=== PATIENT | male | born 1965 | race Caucasian/White ===

== ENCOUNTER 2021-09-15 11:21 | Emergency (ER) | payer OTHER ==
--- NOTE | 2021-09-15 11:40 | EDM.PDOC ---
ED HPI GENERAL MEDICAL PROBLEM - General Stated Complaint: CHEST PAIN Time Seen by Provider: 09/15/21 11:28 Source of Information: Reports: Patient, RN Notes Reviewed - History of Present Illness INITIAL COMMENTS - FREE TEXT/NARRATIVE: 56 yo gentleman who was brought form [facility] for evaluation of chest discomfort/Pressure. Patient reports that pain started this morning and got progressively worse. Rates pain as 5/10. Pain apparently resolved prior to presentation. No SOB. No fever, chills. Onset: Today, Sudden Duration: Hour(s): (started 3 hours ago) Quality: Reports: Pressure Midsternal chest Pain Score (Numeric/FACES): 1 - Related Data Allergies Allergy/AdvReac Type Severity Reaction Status Date / Time No Known Allergies Allergy Verified 09/15/21 12:09 Home Meds: Home Meds . [Unable to Verify Home Med List] 09/15/21 [History] ED ROS GENERAL - Review of Systems Review Of Systems: Comprehensive ROS is negative, except as noted in HPI. Constitutional: Reports: No Symptoms HEENT: Reports: No Symptoms Respiratory: Reports: No Symptoms Cardiovascular: Reports: No Symptoms Endocrine: Reports: No Symptoms GI/Abdominal: Reports: No Symptoms : Reports: No Symptoms Musculoskeletal: Reports: No Symptoms Skin: Reports: No Symptoms Neurological: Reports: No Symptoms Psychiatric: Reports: No Symptoms Hematologic/Lymphatic: Reports: No Symptoms Immunologic: Reports: No Symptoms ED EXAM, GENERAL - Physical Exam Exam: See Below Exam Limited By: No Limitations General Appearance: Alert, WD/WN, No Apparent Distress Ears: Normal External Exam, Normal Canal, Hearing Grossly Normal, Normal TMs Ear Exam: Bilateral Ear: Auricle Normal, Canal Normal, TM normal Nose: Normal Inspection, Normal Mucosa, No Blood Throat/Mouth: Normal Inspection, Normal Lips, Normal Teeth, Normal Gums, Normal Oropharynx, Normal Voice, No Airway Compromise Head: Atraumatic, Normocephalic Neck: Normal Inspection, Supple, Non-Tender, Full Range of Motion Respiratory/Chest: No Respiratory Distress, Lungs Clear, Normal Breath Sounds, No Accessory Muscle Use, Chest Non-Tender Cardiovascular: Normal Peripheral Pulses, Regular Rate, Rhythm, No Edema, No Gallop, No JVD, No Murmur, No Rub GI/Abdominal: Normal Bowel Sounds, Soft, Non-Tender, No Organomegaly, No Distention, No Abnormal Bruit, No Mass Extremities: Normal Inspection, Normal Range of Motion, Non-Tender, Normal Capillary Refill, No Pedal Edema Neurological: Alert, Oriented, CN II-XII Intact, Normal Cognition, Normal Gait, Normal Reflexes, No Motor/Sensory Deficits Psychiatric: Normal Affect, Normal Mood Skin Exam: Warm, Dry, Intact, Normal Color, No Rash Lymphatic: No Adenopathy Course - Vital Signs Last Recorded V/S: Last Vital Signs Temp 37.4 C 09/15/21 11:21 Pulse 84 09/15/21 11:21 Resp 18 09/15/21 11:21 BP 151/90 H 09/15/21 11:21 Pulse Ox 94 L 09/15/21 11:21 - Orders/Labs/Meds Orders: Active Orders 24 hr Category Date Time Status EKG Documentation Completion [RC] ASDIRECTED Care 09/15/21 11:46 Active CXR [Chest 1V Frontal] [CR] Stat Exams 09/15/21 11:45 Taken EKG 12 Lead [EK] Routine Ther 09/15/21 11:46 Ordered Labs: Laboratory Tests 09/15/21 09/15/21 09/15/21 Range/Units 11:27 11:27 11:27 WBC 5.8 (3.2-10.1) x10-3/uL RBC 4.47 (3.90-5.90) x10(6)uL Hgb 13.7 (12.9-17.7) g/dL Hct 40.3 (38.3-50.1) % MCV 90.2 (80.8-98.7) fL MCH 30.6 (27.0-33.3) pg MCHC 33.9 (28.7-35.3) g/dL RDW 13.3 (12.4-15.0) % Plt Count 297 (117-477) x10(3)uL MPV 7.2 (6.7-11.0) fL Neut % (Auto) 51.5 (40.3-71.8) % Lymph % (Auto) 33.3 (15.8-45.3) % [place] % (Auto) 12.5 (5.5-15.2) % Eos % (Auto) 1.4 (0.1-6.8) % Baso % (Auto) 1.3 (0.3-3.8) % Neut # (Auto) 3.0 (1.7-6.9) x10-3/uL Lymph # (Auto) 1.9 (0.5-4.5) x10-3/uL [place] # (Auto) 0.7 (0.0-1.2) x10-3/uL Eos # (Auto) 0.1 (0.0-0.6) x10-3/uL Baso # (Auto) 0.1 (0.0-0.3) x10-3/uL Sodium 141 (135-145) mmol/L Potassium 3.5 (3.5-5.3) mmol/L Chloride 104 (100-110) mmol/L Carbon Dioxide 28 (21-32) mmol/L BUN 13 (7-18) mg/dL Creatinine 1.3 (0.70-1.30) mg/dL Est Cr Clr Drug Dosing TNP Estimated GFR (MDRD) 57 L (>60) BUN/Creatinine Ratio 10.0 (9-20) Glucose 81 (80-116) mg/dL Calcium 8.7 (8.6-10.2) mg/dL Total Bilirubin 0.4 (0.1-1.3) mg/dL AST 22 (5-25) IU/L ALT 23 (12-36) U/L Alkaline Phosphatase 52 L (56-112) IU/L Troponin I 7.1 (4.0-60.3) pg/mL Total Protein 7.4 (6.0-8.0) g/dL Albumin 3.6 (3.5-5.2) g/dL Globulin 3.8 g/dL Albumin/Globulin Ratio 1.0 Departure - Departure Time of Disposition: 12:27 Disposition: Home, Self-Care 01 Condition: Good Clinical Impression: Atypical chest pain - Discharge Information *PRESCRIPTION DRUG MONITORING PROGRAM REVIEWED*: No *COPY OF PRESCRIPTION DRUG MONITORING REPORT IN PATIENT [place]: No Instructions: Nonspecific Chest Pain, Adult Referrals: PCP,Unknown [Primary Care Provider] - Sepsis Event Note (ED) - Focused Exam Vital Signs: Vital Signs Temp Pulse Resp BP Pulse Ox 09/15/21 11:21 37.4 C 84 18 151/90 H 94 L - My Orders Last 24 Hours: My Active Orders 09/15/21 11:45 CXR [Chest 1V Frontal] [CR] Stat 09/15/21 11:46 EKG Documentation Completion [RC] ASDIRECTED EKG 12 Lead [EK] Routine - Assessment/Plan Last 24 Hours: My Active Orders 09/15/21 11:45 CXR [Chest 1V Frontal] [CR] Stat 09/15/21 11:46 EKG Documentation Completion [RC] ASDIRECTED EKG 12 Lead [EK] Routine
[2021-09-15] MEDS ORDERED: Carvedilol 25 MG Tab PO ONE (12:52)
[2021-09-15] MEDS ORDERED: buPROPion 150 MG Tab.ER PO ONE (12:52)
[2021-09-15] MEDS ORDERED: Pantoprazole 40 MG Tab.CR PO STA (12:53)
[2021-09-15] MEDS ORDERED: Furosemide 40 MG Tab PO ONE (12:53)
--- NOTE | 2021-09-16 10:53 | CR ---
CHEST ONE VIEW INDICATION: Chest pain. FINDINGS: AP portable upright view of the chest 09/15/21 - no comparison. The heart did not appear enlarged. The aorta is minimally tortuous. Overlying EKG leads are noted. An active infiltrate or effusion was not identified. IMPRESSION: No acute process. MTDD
== END 2021-09-15 13:22 ==
LOC: FB.ED 11:21
DX: R07.89 Other chest pain (principal)
CPT/HCPCS: 36415; 71045; 80053; 84484; 85025; 93005; 99285-25; A9270-GY